=== PATIENT | male | born 1995 | race Caucasian/White ===

== ENCOUNTER → 2019-12-29 | Day surgery (SDC) | payer BC ==
[2019-12-27 10:38] VITALS: BMI 24.4
[~2019-12-29] MED LIST: LACTATED RINGERS 1,000 ML IV ONE; LACTATED RINGERS 1,000 ML IV SCH; LIDOCAINE 1% INJ 10MG/ML (20 ML MDV) ONE; MIDAZOLAM 2 MG/2 ML VIAL IVP ONE; MIDAZOLAM 2 MG/2 ML VIAL ONE; fentaNYL (PF) 50 MCG/ML 2 ML AMP ONE
[2019-12-29 09:42] VITALS: TEMP 98.4
--- NOTE | 2019-12-29 11:37 | P.PCN ---
Date of Procedure: 12/29/19 Description of Procedure: BRIEF HISTORY: Patient is a 24-year-old male with a medical history significant for GERD and marijuana use who presents for outpatient EGD for evaluation of epigastric pain. Patient reports a prior history of omeprazole use for GERD. He was seen in the GI clinic reporting epigastric abdominal pain and nausea. PROCEDURE PERFORMED: Esophagogastroduodenoscopy with biopsy. PREOPERATIVE DIAGNOSIS: Epigastric abdominal, GERD. ESTIMATED BLOOD LOSS: Minimal. IV sedation per anesthesia. PROCEDURE: After informed consent was obtained, the patient was brought into the endoscopy unit. IV sedation was administered by Anesthesia under continuous monitoring. Initially the Olympus GIF-190 video endoscope was inserted into the mouth. Esophagus intubated without any difficulty. It was gradually advanced into the stomach and duodenum and carefully examined. The bulb and the second part of the duodenum appeared normal, with biopsies taken. The scope at this time was withdrawn to the stomach, adequately insufflated with air, and upon careful examination, mucosa of the antrum, body, cardia and the fundus appeared normal, except for some mild punctate erythema in the antrum and body suggestive of mild gastritis with biopsies taken. The scope was then withdrawn into the esophagus. The GE junction was located at 42 cm from the incisors and biopsied. The midesophagus was biopsied to rule out eosinophilic esophagitis. The esophagus appeared normal. There were no erosions or ulcerations seen and the patient tolerated the procedure well. IMPRESSION: 1. Mild Gastritis. 2. Biopsies of the duodenum, antrum body, GE junction and mid esophagus. RECOMMENDATIONS: The findings of this examination were discussed with the patient and his father. Okay to resume diet. Okay to resume medications. Continue omeprazole therapy. Follow up in GI clinic as scheduled.
[2019-12-29 11:40] VITALS: RESP 16
[2019-12-29 11:52] VITALS: BP 103/51; PULSE 59
== END ==
LOC: ORWHC2ENDO 09:16
PROVIDERS: ATTEND Internal Medicine
DX: K29.50 Unspecified chronic gastritis without bleeding (principal); B96.81 Helicobacter pylori [H. pylori] as the cause of diseases classified elsewhere; K20.90 Esophagitis, unspecified without bleeding; K21.9 Gastro-esophageal reflux disease without esophagitis; K08.89 Other specified disorders of teeth and supporting structures; F17.290 Nicotine dependence, other tobacco product, uncomplicated; Z79.899 Other long term (current) drug therapy
CPT/HCPCS: 43239; 88305; 88342; J2250; J2001; J3010